=== PATIENT | female | born 1990 ===

== ENCOUNTER 2018-02-20 14:05 | Emergency (ER) | payer OTHER ==
[~2018-02-20] VITALS: Ht 160 cm; Wt 65.8 kg
[2018-02-20 14:11] VITALS: BP 114/74
--- NOTE | 2018-02-20 15:34 | ED GI/GU/ABDOMINAL COMPLAINT ---
History of Present Illness General Chief Complaint: Abdominal Pain/Flank Pain Stated Complaint: ABD PAIN Source: patient Exam Limitations: no limitations Vital Signs & Intake/Output Vital Signs & Intake/Output Vital Signs Date Time Temp Pulse Resp B/P B/P Pulse O2 O2 Flow FiO2 Mean Ox Delivery Rate 02/20 1411 97.1 86 18 114/74 98 Room Air Allergies Coded Allergies: No Known Allergies (02/20/18) Reconcile Medications Levonorgestrel (Mirena) 20 MCG/24 HOUR (5 YEARS) IUD CONTROL (Reported) Meloxicam (Mobic) 15 MG TABLET 1 TAB PO DAILY PRN PAIN Triage Note: 27 YEAR OLD FEMALE TO ER WITH COMPLAINTS OF LOW PELVIC PRESSURE THAT STARTED YESTERDAY AND HAS BEEN CONSATNT, DENIES N/V/D, OR URINARY SYMPTOMS, WHEN ASKED ABOT POSSIBLE PREGNACY, SHE DENIES AND STATES THAT SHE IS ON CONTROL. LMP 3 MONTHS AGO Triage Nurses Notes Reviewed? yes ? N Is pt currently ? No Onset: Gradual Duration: constant Timing: recent history Quality/Severity: aching Severity Numbers: 5 Location: suprapubic Radiation: back HPI: Patient is a 27-year-old female who presents emergency room with concerns of suprapubic and pelvic abdominal aching discomfort for the past 24 hours she does state that symptoms have come and gone for the past 3 months patient has not had a period since. Patient denies any fever chills dysuria however does have urge of frequency of urination, denies any change in bowel habits, Denies any change in symptoms when eating and drinking denies any nausea or vomiting. Patient was evaluated by primary care doctor last week with unremarkable findings. (Santi Elizalde) Past History Travel History Traveled to [place] past 21 day No Medical History Any Pertinent Medical History? none Neurological: NONE EENT: NONE Cardiovascular: NONE Respiratory: NONE Gastrointestinal: NONE Hepatic: NONE Renal: NONE Musculoskeletal: NONE Psychiatric: NONE Endocrine: NONE Blood Disorders: NONE Cancer(s): NONE CHEMICAL SPRAYER/Reproductive: NONE Surgical History Surgical History: non-contributory Psychosocial History Tobacco Use: Never used ETOH Use: denies use Illicit Drug Use: denies illicit drug use Family History Hx Contributory? No (Santi Elizalde) Review of Systems Review of Systems Constitutional: Reports: no symptoms. EENTM: Reports: no symptoms. Respiratory: Reports: no symptoms. Cardiovascular: Reports: no symptoms. GI: Reports: see HPI, abdominal pain. Genitourinary: Reports: see HPI, urgency. Musculoskeletal: Reports: see HPI. Skin: Reports: no symptoms. Neurological/Psychological: Reports: no symptoms. Hematologic/Endocrine: Reports: no symptoms. Immunologic/Allergic: Reports: no symptoms. All Other Systems: Reviewed and Negative (Santi Elizalde) Physical Exam Physical Exam General Appearance: no apparent distress, alert, comfortable Head: atraumatic Eyes: Bilateral: normal appearance. Ears, Nose, Throat, Mouth: moist mucous membrane Neck: normal inspection Respiratory: no respiratory distress Cardiovascular: regular rate/rhythm Gastrointestinal: normal bowel sounds, soft, Suprapubic point tenderness no rebound tenderness Extremities: normal range of motion Neurologic/Psych: no motor/sensory deficits, awake Core Measures ACS in differential dx? No Sepsis Present: No Sepsis Focused Exam Completed? No (Santi Elizalde) Progress Differential Diagnosis: AAA, AMI, appendicitis, biliary colic, bowel obstruction , colon cancer, cholecystitis, diverticulitis, ectopic , endometritis, esophageal varices, gastritis, hepatitis, hernia, hemorrhoids, ischemic bowel, inflamm bowel dis, intrauterine , kidney stone, Sully-Arnie tear, ovarian cyst, ovarian torsion, pancreatitis, PID/cervicitis, peptic ulcer, PUD/ GERD, perforated viscous, SBO, threatened AB, UTI/pyelo Plan of Care: Orders Procedure Date/time Status LIPASE 02/20 144 Complete HUMAN BETA HCG SCREEN 02/20 144 Complete COMPREHENSIVE METABOLIC PANEL 02/20 144 Complete CBC WITHOUT DIFFERENTIAL 02/20 144 Complete URINE 02/20 141 Complete URINALYSIS 02/20 141 Complete Laboratory Tests 02/20/18 1540: Anion Gap 9, Estimated GFR > 60, BUN/Creatinine Ratio 24.0, Glucose 95, Calcium 8.8, Total Bilirubin 0.5, AST 16, ALT 19, Alkaline Phosphatase 62, Total Protein 7.6, Albumin 4.5, Globulin 3.1, Albumin/Globulin Ratio 1.5, Lipase 58, Total Beta HCG NEGATIVE, CBC w Diff NO MAN DIFF REQ, RBC 4.35, MCV 86.0, MCH 29.6, MCHC 34.4, RDW 13.2, MPV 7.1 L, Gran % 57.2, Lymphocytes % 29.9, Monocytes % 10.2 H, Eosinophils % 1.5, Basophils % 1.2, Absolute Granulocytes 3.7, Absolute Lymphocytes 2.0, Absolute Monocytes 0.7 H, Absolute Eosinophils 0.1, Absolute Basophils 0.1 02/20/18 1428: Urine Color YEL, Urine Clarity CLEAR, Urine pH 6.0, Ur Specific [place] >= 1.030 , Urine Protein NEG, Urine Ketones NEG, Urine Nitrite NEG, Urine Bilirubin NEG, Urine Urobilinogen 0.2, Ur Leukocyte Esterase NEG, Ur Microscopic EXAM NOT REQUIRED, Urine Hemoglobin NEG, Urine Glucose NEG, Urine Test NEGATIVE Patient upon initial examination is resting comfortably bedside afebrile 1740 patient was reevaluated again resting comfortably bedside no apparent distress had improvement of suprapubic pain with Toradol CT scan pending CT scan was resulted showing nonspecific pelvic fluid On reexamination no findings of incarcerated or strangulated hernia around the periumbilical region noted from the CT scan She was strongly advised to follow-up with her [employer] and surgeon Dr. Hanna Patient was given copies of CT scan Upon discharge patient looks well no apparent distress and will comply with discharge instructions and had no questions Diagnostic Imaging: Viewed by Me: CT Scan. Radiology Impression: SEE COMMENTS Initial ED EKG: none Comments: PATIENT: SOPHY SALCEDO PRESENT AGE: 27 PATIENT ACCOUNT NO: [id number] : 91 LOCATION: [facility] ORDERING PHYSICIAN: Santi MONTELONGO SERVICE DATE: 02/20/18-1604 EXAM TYPE: CAT - CT ABD & PELVIS W IV CONTRAST EXAMINATION: CT ABDOMEN AND PELVIS WITH CONTRAST CLINICAL INFORMATION: Pelvic pain. COMPARISON: None. TECHNIQUE: Multidetector CT volumetric acquisition of the abdomen and pelvis was performed after the administration of 98 mL of intravenous Optiray 320. The data set was reformatted in the sagittal and coronal planes and reviewed on an independent workstation. DLP: 265.53 mGy-cm. FINDINGS: LOWER CHEST: Included lung bases unremarkable. LIVER, GALLBLADDER, BILIARY TREE: Liver normal size and attenuation. No focal cystic or solid mass or intra-or extrahepatic ductal dilatation. Hepatic and portal veins patent. Gallbladder partially distended and within normal limits. PANCREAS: Normal. No ductal dilatation, mass, or surrounding stranding. SPLEEN: Normal size and appearance. Splenic vein patent. ADRENAL GLANDS AND KIDNEYS: Adrenal glands normal. Kidneys bilaterally symmetric in size and function. No focal mass, hydronephrosis, nephrolithiasis or perinephric stranding. URETERS AND BLADDER: Ureters decompressed and within normal limits. Bladder partially distended and within normal limits. PELVIC ORGANS: An intrauterine device is seen in place. Small amount of free fluid is seen in the pelvis, likely physiologic. Ovaries bilaterally are symmetric and unremarkable. No suspicious adnexal mass seen. GASTROINTESTINAL TRACT: Normal. Small and large bowel loops decompressed. Appendix in right lower quadrant normal. LYMPHOVASCULAR STRUCTURES: Abdominal aorta normal in caliber. No periaortic collections. No abdominal or pelvic adenopathy or free fluid collection. ABDOMINAL WALL: There is a small fat-containing umbilical hernia. BONES: Tiny amount of spurring is seen along the anterior T9-10 vertebral margins. IMPRESSION: 1. Small amount of free fluid is seen in the pelvis, likely a physiologic finding. No suspicious adnexal mass noted. 2. Small fat-containing umbilical hernia. 3. Otherwise unremarkable CT scan of the abdomen and pelvis. DICTATED BY: Dany SHEFFIELD,Kendy Hough. 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 Tomorrow please follow-up with your establish [employer] and follow up with surgeon Dr. Hanna. Begin the prescription of MELOXICAM for pain. Prescriptions waiting at [facility] Departure Forms: Customer Survey General Discharge Information Prescriptions: Current Visit Scripts Meloxicam (Mobic) 1 TAB PO DAILY PRN PAIN #10 TAB (Santi Elizalde) PA/INTERNET SALES MANAGER Co-Sign Statement Statement: ED Attending supervision documentation- [] I saw and evaluated the patient. I have also reviewed all the pertinent lab results and diagnostic results. I agree with the findings and the plan of care as documented in the PA's/INTERNET SALES MANAGER's documentation. [x] I have reviewed the ED Record and agree with the PA's/INTERNET SALES MANAGER's documentation. [] Additions or exceptions (if any) to the PAs/INTERNET SALES MANAGER's note and plan are summarized below: [] (Clive Cho DO)
[2018-02-20 15:53] LABS: ABSOLUTE BASOPHIL COUNT 0.1 /CUMM (0.0-0.2); ABSOLUTE EOSINOPHIL COUNT 0.1 /CUMM (0.0-0.7); ABSOLUTE GRANULOCYTE CT 3.7 /CUMM (1.4-6.5); ABSOLUTE MONOCYTE COUNT 0.7 /CUMM (0.10-0.60); BASOPHIL % 1.2 % (0.0-2.0); EOSINOPHIL % 1.5 % (0-5); GRANULOCYTE % 57.2 % (42.2-75.2); HEMATOCRIT 37.4 % (37-47); MEAN CORPUSCULAR HGB 29.6 PG (27.0-31.0); MEAN CORPUSCULAR HGB CONC 34.4 G/DL (33.0-37.0); MEAN PLATELET VOLUME 7.1 FL (7.4-10.4); PLATELET COUNT 259 /CUMM (130-400); RBC DISTRIBUTION WIDTH 13.2 % (11.5-14.5); RED BLOOD CELL CT 4.35 /CUMM (4.20-5.40); WHITE BLOOD CELL COUNT 6.6 /CUMM (4.8-10.8)
[2018-02-20] MEDS ORDERED: MIRENA1 EACH (16:49)
--- NOTE | 2018-02-20 18:31 | CT SCAN REPORT ---
EXAMINATION: CT ABDOMEN AND PELVIS WITH CONTRAST CLINICAL INFORMATION: Pelvic pain. COMPARISON: None. TECHNIQUE: Multidetector CT volumetric acquisition of the abdomen and pelvis was performed after the administration of 98 mL of intravenous Optiray 320. The data set was reformatted in the sagittal and coronal planes and reviewed on an independent workstation. DLP: 265.53 mGy-cm. FINDINGS: LOWER CHEST: Included lung bases unremarkable. LIVER, GALLBLADDER, BILIARY TREE: Liver normal size and attenuation. No focal cystic or solid mass or intra-or extrahepatic ductal dilatation. Hepatic and portal veins patent. Gallbladder partially distended and within normal limits. PANCREAS: Normal. No ductal dilatation, mass, or surrounding stranding. SPLEEN: Normal size and appearance. Splenic vein patent. ADRENAL GLANDS AND KIDNEYS: Adrenal glands normal. Kidneys bilaterally symmetric in size and function. No focal mass, hydronephrosis, nephrolithiasis or perinephric stranding. URETERS AND BLADDER: Ureters decompressed and within normal limits. Bladder partially distended and within normal limits. PELVIC ORGANS: An intrauterine device is seen in place. Small amount of free fluid is seen in the pelvis, likely physiologic. Ovaries bilaterally are symmetric and unremarkable. No suspicious adnexal mass seen. GASTROINTESTINAL TRACT: Normal. Small and large bowel loops decompressed. Appendix in right lower quadrant normal. LYMPHOVASCULAR STRUCTURES: Abdominal aorta normal in caliber. No periaortic collections. No abdominal or pelvic adenopathy or free fluid collection. ABDOMINAL WALL: There is a small fat-containing umbilical hernia. BONES: Tiny amount of spurring is seen along the anterior T9-10 vertebral margins. IMPRESSION: 1. Small amount of free fluid is seen in the pelvis, likely a physiologic finding. No suspicious adnexal mass noted. 2. Small fat-containing umbilical hernia. 3. Otherwise unremarkable CT scan of the abdomen and pelvis.
[2018-02-20] MEDS ORDERED: MOBIC15 M1 PO (18:40)
== END 2018-02-20 19:14 ==
LOC: ERH 14:05
PROVIDERS: Physician Assistant Medical
DX: K42.9 Umbilical hernia without obstruction or gangrene (principal); R10.2 Pelvic and perineal pain
CPT/HCPCS: 74177; 81003; 81025; 96374; J1885